=== PATIENT | male | born 1975 | race Caucasian/White ===

== ENCOUNTER 2017-05-08 10:03 | Emergency (ER) | payer MEDICAID ==
[~2017-05-08] VITALS: Ht 172.7 cm; Wt 116.0 kg
[2017-05-08 10:30] VITALS: BP 146/100
== END 2017-05-08 11:26 | disposition home or self-care (01) ==
LOC: ER 10:03
DX: K64.4 Residual hemorrhoidal skin tags (principal)
CPT/HCPCS: 99283